=== PATIENT | female | born 1945 | race Caucasian/White ===

== ENCOUNTER 2025-03-19 09:54 | Outpatient (CLI) | payer MEDICARE, OTHER, SELFPAY | END 2025-03-19 09:55 | disposition home or self-care (01) | LOC: INJ CL 09:57 | PROVIDERS: PCP Specialist; Visit Provider Family Medicine | DX: M53.3 Sacrococcygeal disorders, not elsewhere classified (principal) | CPT/HCPCS: 27096; J0702; Q9966 ==

== ENCOUNTER 2025-05-31 08:28 | Outpatient (CLI) | payer MEDICARE, OTHER, SELFPAY | END 2025-05-31 08:29 | disposition home or self-care (01) | LOC: INJ CL 08:28 | PROVIDERS: PCP Specialist; Visit Provider Family Medicine | DX: M53.3 Sacrococcygeal disorders, not elsewhere classified (principal) | CPT/HCPCS: 27096; J0702; Q9966 ==